=== PATIENT | female | born 1965 | race Hispanic/Latino ===

== ENCOUNTER 2022-04-01 13:46 | Emergency (ER) | payer SELFPAY ==
[~2022-04-01] VITALS: Ht 170.2 cm; Wt 75.3 kg
[2022-04-01 15:10] LABS: CLARITY,URINE SL CLOUDY (CLEAR); COLOR,URINE AMBER (YELLOW); KETONES,URINE TRACE (NEGATIVE); LEUKOCYTE ESTERASE ,URINE NEGATIVE (NEGATIVE); NITRITE,URINE POSITIVE (NEGATIVE); PROTEIN,URINE DIPSTICK 2+ (NEGATIVE); URINE UROBILINOGEN 2 mg/dL (0.2 - 1)
[2022-04-01 15:21] LABS: BACTERIA,URINE MANY /HPF; RBC,URINE 0-5 /HPF (0-5)
[2022-04-01] MEDS ORDERED: CEPHALEXIN500 MG PO (15:26)
== END 2022-04-01 15:44 | disposition home or self-care (01) ==
LOC: ER 13:50
DX: R30.0 Dysuria (principal); N39.0 Urinary tract infection, site not specified; R10.30 Lower abdominal pain, unspecified
CPT/HCPCS: 81001; 87086; 87186; 99283